=== PATIENT | female | born 1950 | race Caucasian/White ===

== ENCOUNTER 2022-02-26 15:09 | Inpatient (IN) ==
[2022-02-26] MEDS ORDERED: DILTIAZEM 25 MG/5 ML VIAL IV ONE (15:28)
[2022-02-26] MEDS ORDERED: DILTIAZEM 100 MG VIAL.ADD IV ONE (15:29)
[2022-02-26] MEDS ORDERED: DILTIAZEM 25 MG/5 ML VIAL IV STA (15:30)
[2022-02-26 15:58] LABS: Basophils % 0.2 % (0.0-0.8); Eosinophils # 0.2 10*3/uL (0.0-0.87); Hematocrit 44.3 VOL% (35.7-47.0); Hemoglobin 13.6 GM/DL (12.0-16.0); Immature Granulocytes % 0.5 %; Immature Granulocytes Absolute 0.04 #; Lymphocytes # 1.4 10*3/uL (1.4-4.0); Lymphocytes % 17.4 % (21.3-54.2); Mean Corpuscular HGB Conc 30.7 GM/DL (32-36); Mean Corpuscular Volume 82.5 FL (87-102); Mean Platelet Volume 10.4 FL (9.6-12.0); Monocytes # 0.5 10*3/uL (0.11-0.8); Monocytes % 6.3 % (1.7-12.7); Neutrophils % 73.6 % (38.7-73.9); Platelet Count 149 T/CUMM (130-400); Red Blood Count 5.37 MC/CUMM (3.8-5.5); Red Cell Distribution Width 15.3 % (9.3-17.3)
[2022-02-26] MEDS ORDERED: DILTIAZEM INJ 100 MG in SODIUM CHLORIDE 0.9% 100 ML IV SCH (16:00)
[2022-02-26 16:09] LABS: PT Patient Result 10.9 SECS (10.1-12.1); Partial Thromboplastin Time 20.7 SECS (23.7-32.9)
[2022-02-26 16:17] LABS: Albumin 3.2 G/DL (3.4-5.0); Bilirubin,Total 1.2 MG/DL (0.20-1.00); Calcium 8.6 MG/DL (8.5-10.1); Osmolality,Calculated 292.4 MOS/KG (273-304); Potassium 3.9 MMOL/L (3.5-5.1); Total Protein 6.6 G/DL (6.4-8.2)
[2022-02-26] MEDS ORDERED: MORPHINE 2 MG/1 ML SYRINGE IV PRN (17:33)
[2022-02-26] MEDS ORDERED: DOCUSATE SODIUM 100 MG CAPSULE PO PRN (17:33)
[2022-02-26] MEDS ORDERED: ONDANSETRON 4 MG/2 ML VIAL IV PRN (17:33)
[2022-02-26] MEDS ORDERED: ZALEPLON 5 MG CAPSULE PO PRN (17:33)
[2022-02-26] MEDS ORDERED: ACETAMINOPHEN 325 MG TABLET PO PRN (17:33)
[2022-02-26] MEDS ORDERED: NITROGLYCERIN SL 0.4 MG TABLET SL PRN (17:42)
[2022-02-26] MEDS: ROSUVASTATIN 20 MG TABLET PO SCH (20:42)
[2022-02-26] MEDS ORDERED: metFORMIN 500 MG TABLET PO SCH (21:00)
[2022-02-26] MEDS ORDERED: ENOXAPARIN 40 MG/0.4 ML SYRINGE SUBCUT SCH (21:00)
[2022-02-26] MEDS ORDERED: glipiZIDE 5 MG TABLET PO SCH (21:00)
[2022-02-26] MEDS ORDERED: GLIMEPIRIDE 4 MG TABLET PO SCH (21:00)
[2022-02-27] MEDS ORDERED: ENOXAPARIN 80 MG/0.8 ML SYRINGE SUBCUT ONE (00:28)
[2022-02-27 05:04] LABS: Basophils % 0.2 % (0.0-0.8); Eosinophils # 0.2 10*3/uL (0.0-0.87); Eosinophils % 3.3 % (0.00-10.9); Hematocrit 42.4 VOL% (35.7-47.0); Immature Granulocytes % 0.3 %; Immature Granulocytes Absolute 0.02 #; Lymphocytes # 1.8 10*3/uL (1.4-4.0); Lymphocytes % 32.1 % (21.3-54.2); Mean Corpuscular HGB Conc 30.7 GM/DL (32-36); Mean Corpuscular Volume 83.6 FL (87-102); Mean Platelet Volume 10.1 FL (9.6-12.0); Monocytes # 0.5 10*3/uL (0.11-0.8); Monocytes % 8.9 % (1.7-12.7); Neutrophils % 55.2 % (38.7-73.9); Platelet Count 198 T/CUMM (130-400); Red Blood Count 5.07 MC/CUMM (3.8-5.5); Red Cell Distribution Width 15.5 % (9.3-17.3); White Blood Count 5.7 T/CUMM (4-12)
[2022-02-27 05:37] LABS: Calcium 8.7 MG/DL (8.5-10.1); Potassium 3.8 MMOL/L (3.5-5.1); Risk Ratio 3.3
[2022-02-27] MEDS ORDERED: MAGNESIUM SULF RIDER 2 GM/50 ML PREMIX IV ONE (07:16)
[2022-02-27] MEDS ORDERED: ASPIRIN 325 MG TABLET PO ONE (07:52)
[2022-02-27] MEDS ORDERED: ASPIRIN EC 81 MG TABLET PO SCH (09:00)
[2022-02-27] MEDS ORDERED: PANTOPRAZOLE 40 MG TABLET PO SCH ×2 (09:00)
[2022-02-27] MEDS ORDERED: ASPIRIN EC 325 MG TABLET PO SCH (09:00)
[2022-02-27] MEDS: ZINC GLUCONATE 50 MG TABLET PO SCH (09:05)
[2022-02-27] MEDS: CHOLECALCIFEROL 400 UNIT TABLET PO SCH (09:05)
[2022-02-27] MEDS: METOPROLOL SUCCINATE XL 100 MG TABLET PO SCH (09:05)
[2022-02-27] MEDS: ACETYLCYSTEINE 600 MG CAPSULE PO SCH ×2 (09:05→21:52)
[2022-02-27] MEDS: OXYBUTYNIN XL 10 MG TABLET PO SCH (09:05)
[2022-02-27] MEDS: CITALOPRAM 20 MG TABLET PO SCH (09:05)
[2022-02-27] MEDS: INSULIN GLARGINE 100 UNIT/ML SUBCUT SCH (09:06)
[2022-02-27] MEDS ORDERED: POTASSIUM CHLORIDE 20 MEQ TABLET PO ONE (09:49)
[2022-02-27] MEDS ORDERED: amLODIPine 5 MG TABLET PO SCH (10:00)
[2022-02-27] MEDS: FAMOTIDINE INJ 40 MG in SODIUM CHLORIDE 0.9% 100 ML IV SCH ×2 (11:43→23:45)
[2022-02-27] MEDS: SODIUM CHLORIDE 0.45% 1,000 ML IV SCH (11:43)
[2022-02-27] MEDS: methylPREDNISolone SOD SUC 125 MG/2 ML VIAL IV SCH ×2 (11:44→17:51)
[2022-02-27] MEDS: ASCORBIC ACID 500 MG TABLET PO SCH ×2 (11:46→21:51)
[2022-02-27] MEDS: diphenhydrAMINE CAP 50 MG CAPSULE PO SCH ×3 (11:46→21:52)
[2022-02-27] MEDS: ENOXAPARIN 120 MG/0.8 ML SYRINGE SUBCUT SCH (13:11)
[2022-02-27] MEDS: ROSUVASTATIN 20 MG TABLET PO SCH (21:52)
[2022-02-28] MEDS: ENOXAPARIN 120 MG/0.8 ML SYRINGE SUBCUT SCH (01:31)
[2022-02-28] MEDS: methylPREDNISolone SOD SUC 125 MG/2 ML VIAL IV SCH ×3 (03:20→18:30)
[2022-02-28] MEDS: SODIUM CHLORIDE 0.45% 1,000 ML IV SCH ×3 (03:24→18:30)
[2022-02-28] MEDS ORDERED: SODIUM CHLORIDE 0.45% 1,000 ML IV SCH (05:30)
[2022-02-28] MEDS: diphenhydrAMINE CAP 50 MG CAPSULE PO SCH ×3 (05:34→15:33)
[2022-02-28 05:37] LABS: Hematocrit 42.9 VOL% (35.7-47.0); Hemoglobin 13.5 GM/DL (12.0-16.0); Immature Granulocytes % 0.7 %; Immature Granulocytes Absolute 0.06 #; Lymphocytes % 10.9 % (21.3-54.2); Mean Corpuscular HGB Conc 31.5 GM/DL (32-36); Mean Corpuscular Volume 82.3 FL (87-102); Mean Platelet Volume 10.7 FL (9.6-12.0); Monocytes # 0.1 10*3/uL (0.11-0.8); Monocytes % 0.8 % (1.7-12.7); Neutrophils % 87.6 % (38.7-73.9); Platelet Count 226 T/CUMM (130-400); Red Blood Count 5.21 MC/CUMM (3.8-5.5); White Blood Count 8.8 T/CUMM (4-12)
[2022-02-28 05:58] LABS: Calcium 8.7 MG/DL (8.5-10.1); Osmolality,Calculated 289.8 MOS/KG (273-304); Potassium 3.9 MMOL/L (3.5-5.1)
[2022-02-28] MEDS ORDERED: GLUCAGON 1 MG VIAL IM PRN (07:03)
[2022-02-28] MEDS ORDERED: DEXTROSE 10% 250 ML BAG IV PRN (07:03)
[2022-02-28] MEDS: INSULIN REGULAR 100 UNIT/ML SUBCUT SCH ×4 (07:26→21:53)
[2022-02-28] MEDS: CITALOPRAM 20 MG TABLET PO SCH (08:30)
[2022-02-28] MEDS: OXYBUTYNIN XL 10 MG TABLET PO SCH (08:30)
[2022-02-28] MEDS: ZINC GLUCONATE 50 MG TABLET PO SCH (08:31)
[2022-02-28] MEDS: CHOLECALCIFEROL 400 UNIT TABLET PO SCH (08:31)
[2022-02-28] MEDS: ASCORBIC ACID 500 MG TABLET PO SCH ×2 (08:31→21:53)
[2022-02-28] MEDS: INSULIN GLARGINE 100 UNIT/ML SUBCUT SCH (08:31)
[2022-02-28] MEDS: ACETYLCYSTEINE 600 MG CAPSULE PO SCH ×2 (08:31→21:54)
[2022-02-28] MEDS: amLODIPine 5 MG TABLET PO SCH (08:37)
[2022-02-28] MEDS: ASPIRIN EC 81 MG TABLET PO SCH (08:37)
[2022-02-28] MEDS: METOPROLOL SUCCINATE XL 100 MG TABLET PO SCH (08:37)
[2022-02-28] MEDS ORDERED: DIAZEPAM 5 MG TABLET PO ONE (09:00)
[2022-02-28] MEDS ORDERED: diphenhydrAMINE CAP 50 MG CAPSULE PO ONE (09:00)
[2022-02-28] MEDS ORDERED: HEPARIN/NACL 0.9% 2 UNITS/ML 2,000 UNIT/1,000 ML BAG IV ONE (09:23)
[2022-02-28] MEDS ORDERED: fentaNYL 100 MCG/2 ML VIAL ONE (09:56)
[2022-02-28] MEDS ORDERED: MIDAZOLAM 2 MG/2 ML VIAL ONE (09:56)
[2022-02-28] MEDS ORDERED: NITROGLYCERIN DRIP 50 MG/250 ML BOTTLE IV ONE (10:03)
[2022-02-28] MEDS ORDERED: VERAPAMIL 5 MG/2 ML VIAL ONE (10:03)
[2022-02-28] MEDS: FAMOTIDINE INJ 40 MG in SODIUM CHLORIDE 0.9% 100 ML IV SCH (12:06)
[2022-02-28] MEDS: ROSUVASTATIN 20 MG TABLET PO SCH (21:54)
[2022-03-01] MEDS: FAMOTIDINE INJ 40 MG in SODIUM CHLORIDE 0.9% 100 ML IV SCH ×2 (00:39→11:08)
[2022-03-01] MEDS: SODIUM CHLORIDE 0.45% 1,000 ML IV SCH (03:19)
[2022-03-01 05:29] LABS: Hematocrit 38.8 VOL% (35.7-47.0); Hemoglobin 11.8 GM/DL (12.0-16.0); Immature Granulocytes % 0.6 %; Immature Granulocytes Absolute 0.05 #; Lymphocytes # 0.7 10*3/uL (1.4-4.0); Lymphocytes % 8.6 % (21.3-54.2); Mean Corpuscular HGB Conc 30.4 GM/DL (32-36); Mean Corpuscular Volume 83.4 FL (87-102); Mean Platelet Volume 10.7 FL (9.6-12.0); Monocytes # 0.4 10*3/uL (0.11-0.8); Monocytes % 4.2 % (1.7-12.7); Neutrophils % 86.6 % (38.7-73.9); Platelet Count 155 T/CUMM (130-400); Red Blood Count 4.65 MC/CUMM (3.8-5.5); Red Cell Distribution Width 15.3 % (9.3-17.3); White Blood Count 8.4 T/CUMM (4-12)
[2022-03-01 05:45] LABS: Calcium 8.4 MG/DL (8.5-10.1); Osmolality,Calculated 295.4 MOS/KG (273-304); Potassium 4.2 MMOL/L (3.5-5.1)
[2022-03-01] MEDS ORDERED: hydrALAZINE 20 MG/1 ML VIAL IV PRN (07:17)
[2022-03-01 08:18] VITALS: BP 157/82
[2022-03-01] MEDS ORDERED: VALSARTAN 80 MG TABLET PO SCH (09:00)
[2022-03-01] MEDS ORDERED: MAGNESIUM SULF RIDER 2 GM/50 ML PREMIX IV ONE (09:03)
[2022-03-01] MEDS: ZINC GLUCONATE 50 MG TABLET PO SCH (09:10)
[2022-03-01] MEDS: ACETYLCYSTEINE 600 MG CAPSULE PO SCH (09:10)
[2022-03-01] MEDS: ASCORBIC ACID 500 MG TABLET PO SCH (09:10)
[2022-03-01] MEDS: CITALOPRAM 20 MG TABLET PO SCH (09:11)
[2022-03-01] MEDS: ASPIRIN EC 81 MG TABLET PO SCH (09:12)
[2022-03-01] MEDS: METOPROLOL SUCCINATE XL 100 MG TABLET PO SCH (09:12)
[2022-03-01] MEDS: amLODIPine 5 MG TABLET PO SCH (09:12)
[2022-03-01] MEDS: CHOLECALCIFEROL 400 UNIT TABLET PO SCH (09:12)
[2022-03-01] MEDS: OXYBUTYNIN XL 10 MG TABLET PO SCH (09:13)
[2022-03-01] MEDS: INSULIN GLARGINE 100 UNIT/ML SUBCUT SCH (09:14)
[2022-03-01] MEDS: INSULIN REGULAR 100 UNIT/ML SUBCUT SCH ×2 (09:15→11:05)
[2022-03-01] MEDS ORDERED: MAGNESIUM OXIDE 400 MG TABLET PO ONE (09:19)
[2022-03-01] MEDS ORDERED: APIXABAN 5 MG TABLET PO SCH (21:00)
== END 2022-03-01 11:30 | disposition home or self-care (01) | DRG 287 ==
LOC: SUATTDRO → N.ED 15:09 → N.EDINP 17:33 → N.TELES 18:06
PROVIDERS: ADMIT Internal Medicine; ATTEND Internal Medicine
PROC: CLCCHCL (ICD-10-PCS; 2022-02-28 08:45)